=== PATIENT | male | born 1940 | race Caucasian/White ===

== ENCOUNTER 2019-10-24 10:49 | Emergency (ER) | payer OTHER ==
[~2019-10-24] VITALS: Ht 170.2 cm; Wt 79.6 kg
--- NOTE | 2019-10-24 11:39 | NUR ---
pt to room from lobby, at bedside. RUDDY Hudson at bedside. Pt presents to ED with c/o bilateral lower back pain radiating to bilateral lower abd. pt states pain is episodic, denies at this time. pt reports nausea and emesis x 1 this am. pt a&o, resps even and unlabored, attached to bp and spo2 monitors. call light in reach. awaiting orders at this time.
--- NOTE | 2019-10-24 11:43 | NUR ---
pt instructed to provide clean catch ua, pt up to bathroom to provide sample. gait steady.
[2019-10-24] MEDS ORDERED: SODIUM CHLORIDE FLUSH 10ML SYR IVF ONE (12:00)
--- NOTE | 2019-10-24 12:11 | NUR ---
report to break RN Bill.
[2019-10-24 12:13] LABS: BASOPHILS # (AUTO) 0.01 x10^3/uL (0-0.1); BASOPHILS % (AUTO) 0 % (0-1); EOSINOPHILS # (AUTO) 0.07 x10^3/uL (0-0.4); EOSINOPHILS % (AUTO) 1 % (1-7); LYMPHOCYTES # (AUTO) 0.62 x10^3/uL (1-3.4); LYMPHOCYTES % (AUTO) 5 % (22-44); MD NO; MEAN CORPUSCULAR HEMOGLOBIN 30.4 pg (27.5-34.5); MEAN CORPUSCULAR HGB CONC 33.4 g/dL (33.2-36.2); MEAN CORPUSCULAR VOLUME 91.1 fL (81-97); MONOCYTES # (AUTO) 0.24 x10^3/uL (0.2-0.8); MONOCYTES % (AUTO) 2 % (2-9); NEUTROPHILS # (AUTO) 12.96 x10^3/uL (1.8-6.8); NEUTROPHILS % (AUTO) 93 % (42-75); PLATELET COUNT 349 x10^3/uL (130-400); RED BLOOD COUNT 5.17 x10^6/uL (4.38-5.82); RED CELL DISTRIBUTION WIDTH 13.5 % (9.4-14.8)
[2019-10-24 12:23] LABS: ALANINE AMINOTRANSFERASE 34 U/L (12-78); ALBUMIN 3.9 g/dL (3.4-5.0); ANION GAP 9 mmol/L (5-15); CALCIUM 9.5 mg/dL (8.5-10.1); CHLORIDE 101 mmol/L (98-107); CREATININE 1.57 mg/dL (0.7-1.3)
[2019-10-24 12:25] LABS: ALKALINE PHOSPHATASE 112 U/L (45-117); BILIRUBIN,TOTAL 0.7 mg/dL (0.2-1.0); TOTAL PROTEIN 7.8 g/dL (6.4-8.2)
[2019-10-24 12:30] LABS: MICROSCOPIC AUTO
[2019-10-24 12:32] LABS: CULTURE INDICATED? NO
--- NOTE | 2019-10-24 13:15 | NUR ---
pt resting on gurney, a&o, resps even and unlabored. pt denies pain. EDMD Becca notified of wbc 13.7, however pt reports he has hx elevated wbc at baseline, extensive workup done in past with no causation found. pt states "my white blood cell count is always high." confirms POC still is to obtain CT.
--- NOTE | 2019-10-24 14:19 | NUR ---
PT DENIES PAIN, PT A&O, RESPS EVEN AND UNLABORED. NADN. PT AMB TO BATHROOM WITH STEADY GAIT. AWAITING CT AND DISPO.
[2019-10-24] MEDS ORDERED: OMNIPAQUE 350 MG/ML, 100ML BOTTLE ONE (14:46)
[2019-10-24 15:11] VITALS: BP 137/72
--- NOTE | 2019-10-24 15:11 | NUR ---
REPORT TO SHANIQUA MARCELINO. PT A&O, RESPS EVEN AND UNLABORED, RIVKA. PT AWAITING DC AT THIS TIME.
--- NOTE | 2019-10-24 15:44 | NUR ---
Patient given discharge instructions and they have confirmed that they understand the instructions. Patient ambulatory with steady gait.
== END 2019-10-24 15:45 | disposition home or self-care (01) ==
LOC: ED 13:15
DX: K52.9 Noninfective gastroenteritis and colitis, unspecified (principal); R10.84 Generalized abdominal pain
CPT/HCPCS: 36415; 74177; 80053; 81001; 83605; 83690; 85025; 99284; Q9967

== ENCOUNTER 2020-03-16 23:05 | Inpatient (IN) | payer MEDICARE, OTHER ==
[~2020-03-16] VITALS: Ht 170.2 cm; Wt 81.4 kg
--- NOTE | 2020-03-16 23:30 | NUR ---
Ptbib remsa for 2 episodes of near syncope. Pt was bradicardic upon remsas arrival. pt was in 2 nd degree type 2 and 3rd degree hb. bradicardia resolved. 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 Pt took evening meds and viagra prior to symptoms. Pt symptoms haved resolved. Bradicardia has resolved. MELISSA. at bedside. call light in reach
[2020-03-16 23:40] LABS: BASOPHILS # (AUTO) 0.01 x10^3/uL (0-0.1); BASOPHILS % (AUTO) 0 % (0-1); EOSINOPHILS # (AUTO) 0.21 x10^3/uL (0-0.4); EOSINOPHILS % (AUTO) 2 % (1-7); LYMPHOCYTES # (AUTO) 0.62 x10^3/uL (1-3.4); LYMPHOCYTES % (AUTO) 6 % (22-44); MD NO; MEAN CORPUSCULAR HEMOGLOBIN 30.7 pg (27.5-34.5); MEAN CORPUSCULAR HGB CONC 33.5 g/dL (33.2-36.2); MEAN CORPUSCULAR VOLUME 91.7 fL (81-97); MEAN PLATELET VOLUME 6.6 fL (7.4-10.4); MONOCYTES # (AUTO) 0.46 x10^3/uL (0.2-0.8); MONOCYTES % (AUTO) 4 % (2-9); NEUTROPHILS % (AUTO) 88 % (42-75); PLATELET COUNT 312 x10^3/uL (130-400); RED BLOOD COUNT 4.68 x10^6/uL (4.38-5.82)
[2020-03-16 23:50] LABS: ALANINE AMINOTRANSFERASE 27 U/L (12-78); ALBUMIN 3.3 g/dL (3.4-5.0); ANION GAP 9 mmol/L (5-15); CALCIUM 8.4 mg/dL (8.5-10.1); CHLORIDE 103 mmol/L (98-107); CREATININE 1.59 mg/dL (0.7-1.3)
[2020-03-16 23:55] LABS: ALKALINE PHOSPHATASE 81 U/L (45-117); BILIRUBIN,TOTAL 0.3 mg/dL (0.2-1.0); TROPONIN I 0.033 ng/mL (0.000-0.045)
[2020-03-16] MEDS ORDERED: SILD50TA PO (23:59)
[2020-03-16] MEDS ORDERED: M-171CAP PO (23:59)
[2020-03-16] MEDS ORDERED: CARV3.1212 PO (23:59)
[2020-03-16] MEDS ORDERED: METF500T27 PO (23:59)
[2020-03-16] MEDS ORDERED: ASCO-96 PO (23:59)
[2020-03-17] VITALS (8 sets, daily range): BP systolic 130–152; BP diastolic 64–79
[2020-03-17 00:14] LABS: FREE T4 (FREE THYROXINE) 1.09 ng/dL (0.76-1.46)
--- NOTE | 2020-03-17 00:47 | NUR ---
PT TO BE ADMITTED. MED REC COMPLETE. VSS. ADMITTING MD AT BEDSIDE
[2020-03-17] MEDS ORDERED: ONDANSETRON 2MG/ML, 2ML IVPush PRN (02:30)
[2020-03-17] MEDS ORDERED: morphine SULFATE 10 MG/ML, 1ML IVPush PRN (02:30)
[2020-03-17] MEDS ORDERED: hydrALAzine 20 MG/ML, 1ML IVPush PRN (02:30)
[2020-03-17 06:05] LABS: BASOPHILS # (AUTO) 0.04 x10^3/uL (0-0.1); BASOPHILS % (AUTO) 0 % (0-1); EOSINOPHILS # (AUTO) 0.26 x10^3/uL (0-0.4); EOSINOPHILS % (AUTO) 3 % (1-7); LYMPHOCYTES # (AUTO) 0.89 x10^3/uL (1-3.4); LYMPHOCYTES % (AUTO) 10 % (22-44); MD NO; MEAN CORPUSCULAR HEMOGLOBIN 31.2 pg (27.5-34.5); MEAN CORPUSCULAR HGB CONC 33.7 g/dL (33.2-36.2); MEAN CORPUSCULAR VOLUME 92.7 fL (81-97); MEAN PLATELET VOLUME 6.7 fL (7.4-10.4); MONOCYTES # (AUTO) 0.61 x10^3/uL (0.2-0.8); MONOCYTES % (AUTO) 7 % (2-9); NEUTROPHILS # (AUTO) 7.37 x10^3/uL (1.8-6.8); NEUTROPHILS % (AUTO) 81 % (42-75); PLATELET COUNT 289 x10^3/uL (130-400); RED BLOOD COUNT 4.43 x10^6/uL (4.38-5.82); RED CELL DISTRIBUTION WIDTH 14.1 % (9.4-14.8)
[2020-03-17 06:14] LABS: ANION GAP 8 mmol/L (5-15); CALCIUM 8.4 mg/dL (8.5-10.1); CHLORIDE 105 mmol/L (98-107)
[2020-03-17 06:19] LABS: CHOL/HDL RATIO 5.8; CHOLESTEROL, TOTAL 163 mg/dL (140-239); CREATININE 1.41 mg/dL (0.7-1.3); HDL CHOL % 17 % (26-37); HDL CHOLESTEROL (DIRECT) 28 mg/dL (40-60); LDL CHOLESTEROL,CALCULATED 108 mg/dL (54-169); LDL/HDL RATIO 3.9 (0.5-3.0); TRIGLYCERIDES 136 mg/dL (50-200); TROPONIN I 0.027 ng/mL (0.000-0.045); VLDL CHOLESTEROL 27 mg/dL (0-25)
[2020-03-17] MEDS: INSULIN LISPRO 100 UNITS/ML, PEN SQ-INSULIN SCH ×4 (08:34→20:49)
[2020-03-17] MEDS: HEPARIN 5,000 UNITS/ML, 1ML SQ SCH ×2 (08:44→20:49)
[2020-03-17] MEDS: SENNA/DOCUSATE TABLET PO SCH (08:45)
[2020-03-17] MEDS: ACETAMINOPHEN 325 MG TABLET PO PRN ×2 (12:32→20:42)
[2020-03-18 01:11] VITALS: BP 138/70
[2020-03-18 07:15] VITALS: BP 122/58
[2020-03-18 07:16] VITALS: BP 138/77
[2020-03-18 07:17] VITALS: BP 137/73
[2020-03-18] MEDS: SENNA/DOCUSATE TABLET PO SCH (08:11)
[2020-03-18] MEDS ORDERED: DICY20TA3 PO (08:11)
[2020-03-18] MEDS: HEPARIN 5,000 UNITS/ML, 1ML SQ SCH (08:11)
[2020-03-18] MEDS: INSULIN LISPRO 100 UNITS/ML, PEN SQ-INSULIN SCH ×2 (08:22→11:36)
[2020-03-18 08:24] LABS: BASOPHILS # (AUTO) 0.01 x10^3/uL (0-0.1); BASOPHILS % (AUTO) 0 % (0-1); EOSINOPHILS # (AUTO) 0.31 x10^3/uL (0-0.4); EOSINOPHILS % (AUTO) 4 % (1-7); LYMPHOCYTES # (AUTO) 0.82 x10^3/uL (1-3.4); LYMPHOCYTES % (AUTO) 10 % (22-44); MD NO; MEAN CORPUSCULAR HEMOGLOBIN 30.9 pg (27.5-34.5); MEAN CORPUSCULAR HGB CONC 33.2 g/dL (33.2-36.2); MEAN CORPUSCULAR VOLUME 92.9 fL (81-97); MEAN PLATELET VOLUME 6.2 fL (7.4-10.4); MONOCYTES # (AUTO) 0.53 x10^3/uL (0.2-0.8); MONOCYTES % (AUTO) 7 % (2-9); NEUTROPHILS # (AUTO) 6.34 x10^3/uL (1.8-6.8); NEUTROPHILS % (AUTO) 79 % (42-75); PLATELET COUNT 333 x10^3/uL (130-400); RED BLOOD COUNT 4.86 x10^6/uL (4.38-5.82); RED CELL DISTRIBUTION WIDTH 14.2 % (9.4-14.8)
[2020-03-18 08:33] LABS: ANION GAP 10 mmol/L (5-15); CALCIUM 9.2 mg/dL (8.5-10.1); CHLORIDE 105 mmol/L (98-107); CREATININE 1.29 mg/dL (0.7-1.3)
[2020-03-20] MEDS ORDERED: BETAPROSTATE (01:52)
== END 2020-03-18 14:17 | disposition home or self-care (01) | DRG 917 ==
LOC: ED 23:39 → EDIP 03-17 00:25 → 5SO 03-17 01:46 → DCLOUNGE 03-18 14:11
PROVIDERS: ADMIT Family Medicine; ATTEND Family Medicine
DX: T46.7X1A Poisoning by peripheral vasodilators, accidental (unintentional), initial encounter (principal); N17.0 Acute kidney failure with tubular necrosis; I44.2 Atrioventricular block, complete; I44.1 Atrioventricular block, second degree; D72.829 Elevated white blood cell count, unspecified; E11.9 Type 2 diabetes mellitus without complications; G89.29 Other chronic pain; I10 Essential (primary) hypertension; Z87.891 Personal history of nicotine dependence; Z82.49 Family history of ischemic heart disease and other diseases of the circulatory system; Z82.3 Family history of stroke; Z79.84 Long term (current) use of oral hypoglycemic drugs; I49.5 Sick sinus syndrome; M54.12 Radiculopathy, cervical region; I45.10 Unspecified right bundle-branch block; Z88.0 Allergy status to penicillin; M54.9 Dorsalgia, unspecified; I95.2 Hypotension due to drugs; M54.2 Cervicalgia; Y92.89 Other specified places as the place of occurrence of the external cause
CPT/HCPCS: 36415; 71045; 80048; 80053; 80061; 82962; 83036; 83735; 84100; 84439; 84443; 84484; 85025; 93005; 93306; 93880; G0378; J1644; J1815

== ENCOUNTER 2020-03-29 14:45 | Outpatient (CLI) | payer MEDICARE, OTHER ==
[~2020-03-29 14:45] MED LIST: ASCO-96 PO; BETAPROSTATE; CARV3.1212 PO; DICY20TA3 PO; M-171CAP PO; METF500T27 PO; SILD50TA PO
== END 2020-03-29 23:59 | disposition home or self-care (01) ==
LOC: RAD 14:45
PROVIDERS: ATTEND Internal Medicine Cardiovascular Disease
DX: R07.9 Chest pain, unspecified (principal)
CPT/HCPCS: 71046

== ENCOUNTER 2020-07-21 15:57 | Emergency (ER) | payer OTHER ==
[~2020-07-21] VITALS: Ht 172.7 cm; Wt 75.8 kg
[2020-07-21] MEDS ORDERED: SODIUM CHLORIDE FLUSH 10ML SYR IVF ONE (16:30)
[2020-07-21 16:48] LABS: BASOPHILS % (AUTO) 1 % (0-1); EOSINOPHILS % (AUTO) 3 % (1-7); LYMPHOCYTES % (AUTO) 10 % (22-44); MEAN CORPUSCULAR HEMOGLOBIN 30.3 pg (27.5-34.5); MEAN CORPUSCULAR HGB CONC 33.5 g/dL (33.2-36.2); MEAN PLATELET VOLUME 6.5 fL (7.4-10.4); MONOCYTES % (AUTO) 9 % (2-9); NEUTROPHILS % (AUTO) 77 % (42-75); PLATELET COUNT 355 x10^3/uL (130-400); RED BLOOD COUNT 4.56 x10^6/uL (4.38-5.82); RED CELL DISTRIBUTION WIDTH 14.1 % (9.4-14.8)
[2020-07-21 16:57] LABS: ALANINE AMINOTRANSFERASE 22 U/L (12-78); ALBUMIN 3.1 g/dL (3.4-5.0); ANION GAP 4 mmol/L (5-15); CALCIUM 8.6 mg/dL (8.5-10.1); CHLORIDE 105 mmol/L (98-107); CREATININE 1.36 mg/dL (0.7-1.3)
[2020-07-21 16:59] LABS: ALKALINE PHOSPHATASE 66 U/L (45-117); BILIRUBIN,TOTAL 0.4 mg/dL (0.2-1.0); TOTAL PROTEIN 6.8 g/dL (6.4-8.2)
[2020-07-21 17:02] LABS: MD NO
--- NOTE | 2020-07-21 18:00 | NUR ---
MULTIPLE ATTEMPTS AT IV. SHANIQUA HEARD PLACED IV. PT AT CT AND CONTRAST PUSHED AND IV INFILTRATED. IV REMOVED AT COBAN PLACED BY CT.
[2020-07-21 18:44] VITALS: BP 135/72
--- NOTE | 2020-07-21 18:46 | NUR ---
IV PLACED. FLUSHED GOOD. CT NOTIFIED.
[2020-07-21] MEDS ORDERED: OMNIPAQUE 350 MG/ML, 100ML BOTTLE ONE (23:28)
== END 2020-07-21 19:42 | disposition home or self-care (01) ==
LOC: ED 18:06
DX: K57.32 Diverticulitis of large intestine without perforation or abscess without bleeding (principal); I10 Essential (primary) hypertension; E11.9 Type 2 diabetes mellitus without complications; Z90.49 Acquired absence of other specified parts of digestive tract; Z95.0 Presence of cardiac pacemaker; Z87.891 Personal history of nicotine dependence
CPT/HCPCS: 36415; 74177; 80053; 83690; 85025; 99285; Q9967

== ENCOUNTER 2021-02-17 11:48 | Observation (INO) | payer OTHER ==
[~2021-02-17] VITALS: Ht 170.2 cm; Wt 78.7 kg
[~2021-02-17 11:48] MED LIST changes: -DICY20TA3 PO; +DICY20TA4 PO
--- NOTE | 2021-02-17 12:32 | NUR ---
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
--- NOTE | 2021-02-17 12:45 | NUR ---
THIS IS A 80 YO M W/ C/O "STOMACH PROBLEMS". PT REPORTS WAS NAUSEAS AND HAD ABD PAIN BUT HAS RESOLVED SINCE ARRIVING HERE. PT RESTING ON NATION TechnologiesRNEY W/ CALL LIGHT IN REACH AND SIDE RAILS UPX2. RESP EVEN AND UNLABORED, RIVKA. PT PROVIDED W/ URINAL AND EDUCATED ON NEED FOR SAMPLE.
--- NOTE | 2021-02-17 12:55 | NUR ---
URINE COLLECTED AND SENT TO LAB.
[2021-02-17 13:07] LABS: MICROSCOPIC AUTO
[2021-02-17 13:11] LABS: BASOPHILS % (AUTO) 1 % (0-1); EOSINOPHILS % (AUTO) 0 % (1-7); LYMPHOCYTES % (AUTO) 4 % (22-44); MEAN CORPUSCULAR HGB CONC 33.8 g/dL (33.2-36.2); MEAN PLATELET VOLUME 6.6 fL (7.4-10.4); MONOCYTES % (AUTO) 3 % (2-9); NEUTROPHILS % (AUTO) 93 % (42-75); PLATELET COUNT 377 x10^3/uL (130-400); RED BLOOD COUNT 4.91 x10^6/uL (4.38-5.82); RED CELL DISTRIBUTION WIDTH 13.5 % (9.4-14.8)
[2021-02-17 13:19] LABS: ALANINE AMINOTRANSFERASE 28 U/L (12-78); ALBUMIN 3.8 g/dL (3.4-5.0); ANION GAP 5 mmol/L (5-15); CALCIUM 9.9 mg/dL (8.5-10.1); CHLORIDE 105 mmol/L (98-107); CREATININE 1.43 mg/dL (0.7-1.3)
[2021-02-17 13:21] LABS: ALKALINE PHOSPHATASE 94 U/L (45-117); BILIRUBIN,TOTAL 0.5 mg/dL (0.2-1.0); TOTAL PROTEIN 7.9 g/dL (6.4-8.2)
[2021-02-17] MEDS ORDERED: LACTATED RINGERS 1,000 ML IV SCH (13:30)
[2021-02-17] MEDS ORDERED: SODIUM CHLORIDE FLUSH 10ML SYR IVF ONE (13:30)
--- NOTE | 2021-02-17 13:48 | NUR ---
PT HAD SMALL BM, NO FORMED STOOL OBSERVED.
[2021-02-17 14:05] LABS: MD NO
--- NOTE | 2021-02-17 14:23 | NUR ---
ES ALDANA AT BEDSIDE.
--- NOTE | 2021-02-17 14:24 | NUR ---
PER BREAK RN HONEY HOSPITALIST AND ERP AGREE NG TUBE NOT INDICATED AT THIS TIME.
[2021-02-17] MEDS ORDERED: ONDANSETRON 2MG/ML, 2ML IVPush PRN (14:30)
[2021-02-17] MEDS ORDERED: ACETAMINOPHEN 325 MG TABLET PO PRN (14:30)
--- NOTE | 2021-02-17 14:36 | NUR ---
REPORT TO NELIDA MCGOVERN. PT READY FOR TRANSPORT AT THIS TIME. IVF INFUSING APPROPRIATELY. RESP EVEN AND UNLABORED, RIVKA.
[2021-02-17 15:26] VITALS: BP 132/70
[2021-02-17] MEDS: SODIUM CHLORIDE 0.9% 1,000 ML IV SCH (17:54)
[2021-02-17 19:58] VITALS: BP 135/76
[2021-02-17] MEDS: CARVEDILOL 3.125 MG TABLET PO SCH (20:07)
[2021-02-18 00:42] VITALS: BP 126/64
[2021-02-18 05:13] LABS: BASOPHILS % (AUTO) 1 % (0-1); EOSINOPHILS % (AUTO) 4 % (1-7); LYMPHOCYTES % (AUTO) 12 % (22-44); MEAN CORPUSCULAR HEMOGLOBIN 31.5 pg (27.5-34.5); MEAN CORPUSCULAR HGB CONC 33.9 g/dL (33.2-36.2); MEAN PLATELET VOLUME 6.7 fL (7.4-10.4); MONOCYTES % (AUTO) 9 % (2-9); NEUTROPHILS % (AUTO) 75 % (42-75); PLATELET COUNT 344 x10^3/uL (130-400); RED BLOOD COUNT 4.56 x10^6/uL (4.38-5.82); RED CELL DISTRIBUTION WIDTH 13.4 % (9.4-14.8)
[2021-02-18 05:22] LABS: MD NO
[2021-02-18 05:24] LABS: CHLORIDE 108 mmol/L (98-107)
[2021-02-18 05:42] LABS: ALANINE AMINOTRANSFERASE 28 U/L (12-78); ALKALINE PHOSPHATASE 86 U/L (45-117); ANION GAP 6 mmol/L (5-15); BILIRUBIN,TOTAL 0.5 mg/dL (0.2-1.0); CALCIUM 8.7 mg/dL (8.5-10.1); CREATININE 1.15 mg/dL (0.7-1.3); TOTAL PROTEIN 6.5 g/dL (6.4-8.2)
[2021-02-18 07:55] VITALS: BP 128/70
[2021-02-18] MEDS ORDERED: [UNRECOGNIZED DRUG - OTHER] HOMEMEDPO SCH (09:00)
[2021-02-18] MEDS ORDERED: ASCORBIC ACID 500 MG TABLET PO SCH (09:00)
[2021-02-18] MEDS: CARVEDILOL 3.125 MG TABLET PO SCH (09:00)
[2021-02-18] MEDS ORDERED: NETTLE HOMEMEDPO SCH (09:00)
[2021-02-18] MEDS: SODIUM CHLORIDE 0.9% 1,000 ML IV SCH (09:09)
[2021-02-18 13:37] VITALS: BP 137/76
== END 2021-02-18 16:10 | disposition home or self-care (01) ==
LOC: ED 13:25 → INTOOBSV 13:33 → 3N 13:33 → ED 14:45 → DCLOUNGE 02-18 15:56
PROVIDERS: ADMIT Internal Medicine; ATTEND Internal Medicine
DX: K56.600 Partial intestinal obstruction, unspecified as to cause (principal); R11.2 Nausea with vomiting, unspecified; D72.829 Elevated white blood cell count, unspecified; N17.0 Acute kidney failure with tubular necrosis; E86.0 Dehydration; E11.65 Type 2 diabetes mellitus with hyperglycemia; I10 Essential (primary) hypertension; G89.4 Chronic pain syndrome; I44.30 Unspecified atrioventricular block; Z88.0 Allergy status to penicillin; Z79.84 Long term (current) use of oral hypoglycemic drugs; Z79.899 Other long term (current) drug therapy; Z87.891 Personal history of nicotine dependence; Z95.0 Presence of cardiac pacemaker; Z90.49 Acquired absence of other specified parts of digestive tract
CPT/HCPCS: 36415; 74021; 80053; 81001; 83735; 84100; 84443; 85025; 96360; 96361; 99284; G0378; J7030; J7120